=== PATIENT | female | born 1950 | race Caucasian/White ===

== ENCOUNTER → 2019-10-12 15:00 | Outpatient (CLI) | payer MEDICARE, OTHER, SELFPAY ==
--- NOTE | ~2019-10-12 | XR_ITS ---
EXAMINATION: XR knee RT 2V DATE: 10/12/2019 15:23 INDICATION: Right knee pain TECHNIQUE: Two views of the right knee were obtained. COMPARISON: None. FINDINGS: Alignment is normal. No fracture or osteochondral lesion. There is mild tricompartmental os teoarthritis characterized by tiny marginal osteophytes. No joint effusion/synovitis. Soft tissues a re unremarkable. IMPRESSION: 1. No acute osseous abnormality. Reviewed, dictated and finalized at location A.
== END ==
PROVIDERS: PCP Family Medicine Adolescent Medicine; Visit Provider Physician Assistant
DX: M25.561 Pain in right knee (principal)
CPT/HCPCS: 73560

== ENCOUNTER → 2020-05-10 16:59 | Outpatient (CLI) | payer MEDICARE, OTHER, SELFPAY ==
--- NOTE | ~2020-05-10 | MM_ITS ---
EXAMINATION: MM screening nico BI w lukasz HISTORY: Screening TECHNIQUE: Craniocaudal and mediolateral oblique 3-D tomosynthesis images were obtained and synthetic 2-D images were generated. CAD analysis was submitted and interpreted. COMPARISON: Comparison to multiple prior studies sequentially, with oldest reviewed study dated 01/18. BREAST PARENCHYMAL COMPOSITION: The breasts are extremely dense, which lowers the sensitivity of mamm ography. FINDINGS: There is no evidence of suspicious mass, calcification, or architectural distortion to sugg est malignancy in either breast. There has been no suspicious interval change. IMPRESSION: 1. No mammographic evidence of malignancy. 2. Recommend routine screening mammography in one year. BI-RADS Category 1: Negative Reviewed, dictated and finalized at location A.
== END ==
PROVIDERS: PCP Family Medicine Adolescent Medicine; Visit Provider Obstetrics & Gynecology Gynecology
DX: Z12.31 Encounter for screening mammogram for malignant neoplasm of breast (principal)
CPT/HCPCS: 77063; 77067

== ENCOUNTER 2021-03-07 14:33 | Outpatient (CLI) | payer MEDICARE, OTHER, SELFPAY ==
--- NOTE | ~2021-03-07 | CT_ITS ---
EXAMINATION: CT abdomen pelvis wo con DATE: 03/07/2021 15:01 INDICATION: Bilateral flank pain TECHNIQUE: Computed tomography (CT) of the abdomen and pelvis was performed without intravenous contr ast. The dose-length product (DLP) was 176.18 mGy-cm. Automated exposure control and iterative recons truction technique were employed. COMPARISON: 03/11/2019 FINDINGS: The lung bases are clear. The heart size is normal. The liver, spleen, pancreas, gallbladde r, and adrenal glands are normal. The kidneys are unremarkable. No stones are identified in the kidne ys, ureters, or bladder. There is no hydronephrosis or hydroureter. No pathologically enlarged abdomi nal or pelvic lymph nodes are identified. There is no free intraperitoneal gas or evidence of bowel o bstruction. There is moderate lumbar spondylosis. IMPRESSION: 1. No CT correlate for the patient's symptoms. Reviewed, dictated and finalized at location B.
--- NOTE | ~2021-03-07 | XR_ITS ---
EXAMINATION: XR abdomen/kub 1V INDICATION: Bilateral flank pain TECHNIQUE: Supine views of the abdomen were obtained on 2 radiographs. COMPARISON: 03/11/2019 FINDINGS: No urolithiasis is identified. The bowel gas pattern is normal. The visualized lung bases a re clear. There is mild osteoarthritis of the hips. IMPRESSION: 1. No urolithiasis identified. Reviewed, dictated and finalized at location B.
== END 2021-03-07 14:34 | disposition home or self-care (01) ==
PROVIDERS: PCP Family Medicine Adolescent Medicine; Visit Provider Nurse Practitioner Adult Health
DX: R10.9 Unspecified abdominal pain (principal)
CPT/HCPCS: 74018; 74176

== ENCOUNTER 2021-07-31 16:35 | Outpatient (CLI) | payer MEDICARE, OTHER, SELFPAY ==
--- NOTE | ~2021-07-31 | MR_ITS ---
EXAMINATION: MR lumbar spine wo [facility] EXAM DATE: 07/31/2021 17:22 INDICATION: Lumbar neuropathy. TECHNIQUE: Multi-sequential, multiplanar MR images of the lumbar spine were obtained without contrast . Sagittal T1, T2, T2 fat saturation images. Axial T2 weighted images. Comparison is made to prior examination from 07/17/2011. FINDINGS: There is moderate disc disease at L3-4 and L4-5, mild at L2-3 and L5-S1. Mild to moderate l ower thoracic disc disease. The conus medullaris terminates at the L1/2 level and has normal signal i ntensity and morphology. There are no suspicious marrow signal abnormalities. Paraspinal soft tissue is unremarkable. Level by level evaluation: T12-L1: Disc does not extend beyond the endplate margin. Facet arthropathy: Moderate right, mild to moderate left. Neural foraminal stenosis: No stenosis. Central canal stenosis: No stenosis. L1-L2: Disc does not extend beyond the endplate margin. Facet arthropathy: Moderate bilateral. Neural foraminal stenosis: No stenosis. Central canal stenosis: No stenosis. L2-L3: There is a mild diffuse disc bulge. Facet arthropathy: Moderate bilateral. Neural foraminal stenosis: Mild to moderate bilateral. Central canal stenosis: No stenosis. L3-L4: There is a mild diffuse disc bulge. Facet arthropathy: Mild bilateral. Neural foraminal stenosis: Mild bilateral. Central canal stenosis: Mild. L4-L5: There is a mild to moderate diffuse disc bulge. Facet arthropathy: Moderate bilateral. Neural foraminal stenosis: Mild to moderate left, mild right. Central canal stenosis: Mild. L5-S1: There is a mild diffuse disc bulge. Facet arthropathy: Mild. Neural foraminal stenosis: Mild to moderate bilateral. Central canal stenosis: Mild. IMPRESSION: Moderate facet arthropathy and mid lumbar disc disease. Reviewed, dictated and finalized at location A. ER LINE
[2021-07-31 18:00] LABS: Basophils Percent Auto 0.2 % (0.2-1.2); Hematocrit 34.1 % (37.0-47.0); Hemoglobin 11.1 g/dL (12.0-15.0); Immature Granulocyte Absolute 0.08 K/mm3 (0.00-0.031); Immature Granulocyte Percent A 0.9 % (0-0.5); Lymphocytes Absolute Auto 0.88 K/mm3 (0.9-3.2); Lymphocytes Percent Auto 9.9 % (18.3-44.2); Mean Corpuscular HGB Conc 32.6 g/dl (32-36); Mean Corpuscular Hemoglobin 31.8 pg (26-34); Mean Corpuscular Volume 97.7 fl (80-100); Monocytes Absolute Auto 0.3 K/mm3 (0.1-0.6); Monocytes Percent Auto 3.4 % (2.6-8.5); Neutrophils Absolute Auto 7.6 K/mm3 (1.3-6.7); Neutrophils Percent Auto 85.6 % (45.5-73.1); Platelet Count Result 205 k/mm3 (150-375); Red Blood Count 3.49 M/mm3 (4.2-5.4); Red Cell Distribution Width 12.6 % (11.5-14.5); White Blood Count 8.9 K/mm3 (4.5-10.0)
[2021-07-31 18:45] LABS: Thyroid Stimulating Hormone 0.247 uIU/mL (0.465-4.680)
[2021-07-31 18:54] LABS: Alanine Aminotransferase 61 U/L (4-35); Albumin Level 4.2 g/dL (3.5-5.1); Alkaline Phosphatase 99 U/L (38-126); Anion Gap 7 mmol/L (8-16); Aspartate Amino Transferase 42 U/L (14-36); Bilirubin,Total 0.3 mg/dL (0.2-1.3); Blood Urea Nitrogen 16 mg/dL (7-17); Calcium 9.3 mg/dL (8.4-10.2); Carbon Dioxide 28 mmol/L (22-30); Chloride 103 mmol/L (98-107); Estimated Glomerular Filt Rate > 60; Glucose 109 mg/dL (65-110); Potassium 3.9 mmol/L (3.4-5.0); Sodium 138 mmol/L (137-145)
== END 2021-07-31 16:36 | disposition home or self-care (01) ==
PROVIDERS: PCP Family Medicine Adolescent Medicine; Visit Provider Physician Assistant
DX: R53.83 Other fatigue (principal); M47.25 Other spondylosis with radiculopathy, thoracolumbar region; M48.05 Spinal stenosis, thoracolumbar region; M47.27 Other spondylosis with radiculopathy, lumbosacral region; M48.07 Spinal stenosis, lumbosacral region
CPT/HCPCS: 36415; 72148; 80053; 84443; 85025

== ENCOUNTER → 2021-08-30 08:15 | Outpatient (CLI) | payer MEDICARE, OTHER, SELFPAY ==
--- NOTE | ~2021-08-30 | DEXA_ITS ---
Bone Density Report Name: WAGNER QUINTANILLA Age: 70 Sex: Female Ethnicity: White Date of : 1950 Indication: osteopenia; monitoring treatment; parental hip fracture; Referring Provider: VARUN, KARON Study: Bone densitometry was performed. Exam Date: August 30, 2021 Accession number: [id number] Bone Density: Region BMD T-score Z-score Classification AP Spine (L1-L4) 0.971 -0.7 1.5 Normal Femoral Neck (Left) 0.683 -1.5 0.3 Osteopenia Total Hip (Left) 0.817 -1.0 0.5 Normal Femoral Neck (Right) 0.556 -2.6 -0.8 Osteoporosis Total Hip (Right) 0.680 -2.1 -0.6 Osteopenia Total Hip Mean 0.749 -1.6 -0.1 Osteopenia World Health Organization criteria for BMD impression classify patients as: Normal (T-score at or above -1.0), Osteopenia (T-score between -1.0 and -2.5), or Osteoporosis (T-score at or below -2.5). 10-year Fracture Risk: FRAX not reported because: Some T-score for Spine Total or Hip Total or Femoral Neck at or below -2.5 Treated for osteoporosis Previous Exams: Region Exam Age BMD T-score BMD Change BMD Change Date g/cm2 vs Baseline vs Previous AP Spine(L1-L4) 08/30/2021 70 0.971 -0.7 0.074* 0.045* 12/01/2016 66 0.926 -1.1 0.029* 0.029* 01/18/2014 63 0.897 -1.4 Total Hip(Left) 08/30/2021 70 0.817 -1.0 0.008 0.024 12/01/2016 66 0.793 -1.2 -0.016 -0.016 01/18/2014 63 0.809 -1.1 Total Hip(Right) 08/30/2021 70 0.680 -2.1 -0.012 0.000 12/01/2016 66 0.681 -2.1 -0.012 -0.012 01/18/2014 63 0.692 -2.0 *Denotes significance at 95% confidence level, LSC for AP Spine = 0.022 g/cm2, LSC for Total Hip = 0.027 g/cm2 Clinical Information Provided by Patient: Parent has had a hip fracture Is being treated for osteoporosis Has used the following medications: Prolia (i.e. denosumab), Calcium Patient maximum height was 62 Menopause Age: 45 No regular weight bearing exercise Onset of menses at age 12 Number of children 3 Impression: The patient has osteoporosis, based on the Right Femoral Neck T-score. The patient has risk factors, including: parental hip fracture. No significant bone loss was observed. Discussion: PATIENT UNDER TREATMENT WITH NO SIGNIFICANT BMD LOSS SINCE LAST EXAM. In an untreated patient, BMD typically declines with age. A lack of decline or gain is usually a sign that treatm
--- NOTE | ~2021-08-30 | MMUS_ITS ---
EXAMINATION: MM diagnostic nico BI w lukasz, US breast BI limited HISTORY: Bilateral breast pain TECHNIQUE: Craniocaudal, mediolateral, and mediolateral oblique 3-D tomosynthesis images of the breandrzej ts were performed and synthetic 2-D images were generated. CAD analysis was submitted and interpreted . High resolution limited bilateral breast ultrasound was performed. COMPARISON: 05/10/2020, 02/21/2019, 12/03/2017, 12/01/2016 BREAST PARENCHYMAL COMPOSITION: There are scattered areas of fibroglandular density. FINDINGS: MAMMOGRAPHIC FINDINGS: A 5 mm obscured, oval, low density mass in the upper outer quadrant of the left breast is stable on m ultiple prior mammograms, consistent with a benign finding. There is no suspicious mass, calcificatio n, or architectural distortion in either breast. No mammographic correlate is identified for the billie ent's bilateral breast pain. ULTRASOUND: There is a 6 mm x 4 mm oval, circumscribed, parallel, hypoechoic mass with no posterior features or i nternal vascularity at the 1:00 location 4 cm from the nipple in the left breast corresponding to the mammographic finding in question. No suspicious mass is identified in either breast. IMPRESSION: 1. No specific mammographic or sonographic correlate is identified for the patient's reported bilater al breast pain. Further evaluation at this time should be based on clinical assessment. Continued fol low-up physical examination is recommended. 2. Recommend routine screening mammography in one year. BI-RADS Category 2: Benign finding(s). Reviewed, dictated and finalized at location A. [employer] EVENT PLANNER IMPRESSION: 1. No specific mammographic or sonographic correlate is identified for the billie ent's reported bilateral breast pain. Further evaluation at this time should be based on clinical assessment. Continued follow-up physical examination is frida mmended. 2. Recommend routine screening mammography in one year. BI-RADS Category 2: Benign finding(s).
== END ==
PROVIDERS: PCP Family Medicine Adolescent Medicine; Visit Provider Nurse Practitioner
DX: N64.4 Mastodynia (principal); Z78.0 Asymptomatic menopausal state; M85.89 Other specified disorders of bone density and structure, multiple sites; M81.0 Age-related osteoporosis without current pathological fracture
CPT/HCPCS: 76642; 77062; 77066; 77080; G0279

== ENCOUNTER 2021-10-06 11:20 | Outpatient (CLI) | payer MEDICARE, OTHER, SELFPAY ==
--- NOTE | ~2021-10-06 | US_ITS ---
EXAMINATION: US venous doppler UE RT DATE: 10/06/2021 11:55 INDICATION: Right forearm pain. TECHNIQUE: Grayscale ultrasound images without and with compression and Doppler ultrasound images of the right upper extremity veins were obtained. COMPARISON: None. FINDINGS: The visualized portions of the right internal jugular vein, subclavian vein, axillary vein, brachial veins, basilic vein, cephalic vein, radial vein, and ulnar vein are patent. IMPRESSION: 1. No deep venous thrombosis. Reviewed, dictated and finalized at location A. LING AGENCY MANAGER
== END 2021-10-06 11:21 | disposition home or self-care (01) ==
LOC: ANHIMG 11:27
PROVIDERS: PCP Family Medicine Adolescent Medicine; Visit Provider Physician Assistant
DX: M79.631 Pain in right forearm (principal); M79.89 Other specified soft tissue disorders
CPT/HCPCS: 93971

== ENCOUNTER 2022-01-30 17:20 | Emergency (ER) | payer MEDICARE, OTHER, SELFPAY ==
[2022-01-30] VITALS (11 sets, daily range): BP systolic 115–125; BP diastolic 56–69; PULSE 66–81; RESP 16–18; TEMP 36.6; O2SAT 90–100
--- NOTE | ~2022-01-30 | CT_ITS ---
EXAMINATION: CT abdomen pelvis w con DATE: 01/30/2022 19:40 INDICATION: RLQ pain, diarrhea X 3 days TECHNIQUE: Computed tomography (CT) of the abdomen and pelvis was performed with 100 mL Omnipaque-300 intravenous contrast. Automated exposure control and iterative reconstruction technique were employe d. The dose-length product was 295.23 mGy-cm. COMPARISON: 03/07/2021. FINDINGS: Lower thorax: Stable left lingular nodule, requires no additional follow-up. Lung bases otherwise ney ar. Cardiomegaly. Liver: Normal. Biliary/Gallbladder: Gallbladder is normal. No bile duct dilation. Pancreas: No mass or duct dilation. Spleen: Normal. Adrenals:No mass. Kidneys: No mass, stone, or hydronephrosis. Ill-defined patchy areas of hypoenhancement in the right kidney. GI tract: No small or large bowel dilation. Appendix not visualized. Mesentery/Peritoneum: No ascites, mass, or free air. Retroperitoneum: No mass. Pelvis: Pelvic organs are within normal limits. Soft Tissues: Soft tissues and body wall unremarkable. Bones: No acute osseous finding. IMPRESSION: Patchy enhancement in the right kidney, may reflect pyelonephritis in the appropriate clinical contex t. Appendix not visualized. Reviewed, dictated and finalized at location K. IMPRESSION: Patchy enhancement in the right kidney, may reflect pyelonephritis in the appro priate clinical context. Appendix not visualized.
--- NOTE | 2022-01-30 17:35 | ED.GENADULT ---
HPI - General Adult General Chief complaint: Nausea/Vomiting/Diarrhea Stated complaint: diarrhea Time Seen by Provider: 01/30/22 17:35 Source: patient Mode of arrival: ambulatory Limitations: no limitations History of Present Illness HPI narrative: Patient is a 71-year-old female who presents ED with report of diarrhea x 3 days. Patient reports she had squash soup on Saturday. She states she hardly digested it and was having profuse diarrhea after eating it, with chunks of squash in it. She has had persistent diarrhea since then, with several episodes per day. She denies any rectal bleeding. She does have some lower abdominal cramping associated with the diarrhea. Denies any nausea, vomiting, fever, chills, dysuria, hematuria, urinary frequency. Patient has not tried anything for her symptoms, but notes she does have Imodium at home. She does have a history of IBS. Related Data Home Medications Medication Instructions Recorded Confirmed clobetasol 0.05 % topical cream 1 applic topical DAILY 08/18/19 10/06/21 cyclosporine 0.05 % eye drops 1 drop ophthalmic (eye) Q12H 08/18/19 10/06/21 (Restasis MultiDose) flaxseed oil 1,000 mg capsule 1,000 mg PO DAILY 08/18/19 10/06/21 ginkgo biloba 120 mg tablet 120 mg PO DAILY 08/18/19 10/06/21 pantoprazole 40 mg tablet,delayed 40 mg PO QAM 08/18/19 10/06/21 release triamcinolone acetonide 0.5 % 1 applic topical DAILY 08/18/19 10/06/21 topical cream vitamin B complex (B 1 tablet PO DAILY 08/18/19 10/06/21 Complex-Vitamin B12 tablet) baclofen 10 mg tablet 5 mg PO BID 10/06/21 10/06/21 calcium carbonate 600 mg calcium 600 mg PO BID 10/06/21 10/06/21 (1,500 mg) tablet ergocalciferol (vitamin D2) 1,250 1,250 mcg PO WEEKLY 10/06/21 10/06/21 mcg (50,000 unit) capsule (Vitamin D2) gabapentin 300 mg capsule 300 mg PO BID 10/06/21 10/06/21 mirabegron 50 mg tablet,extended 50 mg PO DAILY 10/06/21 10/06/21 release 24 hr (Myrbetriq) Allergies Allergy/AdvReac Type Severity Reaction Status Date / Time codeine Allergy Unknown u Verified 10/06/21 10:11 diazepam Allergy Unknown u Verified 10/06/21 10:11 nitrofurantoin Allergy Unknown u Verified 10/06/21 10:11 polymyxin B Allergy Unknown u Verified 10/06/21 10:11 propoxyphene Allergy Unknown u Verified 10/06/21 10:11 Sulfa (Sulfonamide Allergy Unknown u Verified 10/06/21 10:11 Antibiotics) trimethoprim Allergy Unknown u Verified 10/06/21 10:11 NITROFURANTOIN MACROCRYSTAL Allergy Unknown u Uncoded 10/06/21 10:11 Review of Systems Review of Systems: CONSTITUTIONAL: Denies fever, chills. CARDIOVASCULAR: Denies chest pain. RESPIRATORY: Denies dyspnea. GASTROINTESTINAL: Reports lower abdominal cramping, diarrhea. Denies rectal bleeding, nausea, vomiting. GENITOURINARY: Denies dysuria, urinary frequency, or hematuria. MUSCULOSKELETAL: Denies back pain, joint pain. NEUROLOGIC: Denies headache, numbness, or weakness. All systems reviewed & are unremarkable except as noted in HPI and below PMFSH Past Medical History Medical History Anxiety Depression GERD (gastroesophageal reflux disease) History of colon polyps Irritable bowel syndrome Mixed hearing loss, bilateral Osteopenia Osteoporosis Overactive bladder Surgical History Surgical History History of History of D&C History of ear surgery right x4 History of tonsillectomy and adenoidectomy Family History Family History Father Family history of Parkinson's disease Family history of dementia Family history of malignant neoplasm Mother Family history of malignant neoplasm of breast in first degree relative Family history of osteoporosis Family history of coronary artery disease Social History Social History Smoking status: Never sm
[2022-01-30 18:05] LABS: Appearance Urine Clear (Clear); Bilirubin Urine Negative (Negative); Blood Urine Negative (Negative); Color Urine Yellow (Yellow); Glucose Urine UA Negative (Negative); Ketones Urine Negative (Negative); Leukocyte Esterase Ur Trace LEU/UL (Negative); Nitrate Urine Negative (Negative); Protein Urine Negative (Negative); Urobilinogen Urine 0.2 mg/dL (<2.0); pH Urine 5.5 (5.0-9.0)
[2022-01-30 18:12] LABS: Mucus Urine Rare /lpf; RBC Urine 0-2 /hpf (0-2); Squamous Epithelial Cell Urine Rare /hpf (Few); Transitional Epi Cells Urine Rare /hpf (None Seen); WBC Urine 0-3 /hpf
[2022-01-30 18:15] LABS: Add Urine Microscopic? YES
[2022-01-30 18:17] LABS: Basophils Percent Auto 0.4 % (0.2-1.2); Eosinophils Percent Auto 0.2 % (0-4.4); Hematocrit 35.5 % (37.0-47.0); Hemoglobin 11.3 g/dL (12.0-15.0); Immature Granulocyte Absolute 0.02 K/mm3 (0.00-0.031); Immature Granulocyte Percent A 0.4 % (0-0.5); Lymphocytes Percent Auto 26.7 % (18.3-44.2); Mean Corpuscular HGB Conc 31.8 g/dl (32-36); Mean Corpuscular Hemoglobin 30.9 pg (26-34); Mean Platelet Volume 9.1 fl (7.4-10.4); Monocytes Absolute Auto 0.4 K/mm3 (0.1-0.6); Monocytes Percent Auto 8.2 % (2.6-8.5); Neutrophils Absolute Auto 3.1 K/mm3 (1.3-6.7); Neutrophils Percent Auto 64.1 % (45.5-73.1); Platelet Count Result 155 k/mm3 (150-375); Red Blood Count 3.66 M/mm3 (4.2-5.4); Red Cell Distribution Width 12.7 % (11.5-14.5); White Blood Count 4.9 K/mm3 (4.5-10.0)
[2022-01-30 18:27] LABS: Alanine Aminotransferase 23 U/L (6-35); Albumin Level 4.4 g/dL (3.5-5.1); Alkaline Phosphatase 88 U/L (38-126); Anion Gap 4 mmol/L (8-16); Aspartate Amino Transferase 29 U/L (14-36); Bilirubin,Total 0.3 mg/dL (0.2-1.3); Blood Urea Nitrogen 18 mg/dL (7-17); Calcium 9.3 mg/dL (8.4-10.2); Carbon Dioxide 30 mmol/L (22-30); Chloride 101 mmol/L (98-107); Estimated CRCL calculation 44 ml/min; Estimated Glomerular Filt Rate > 60; Glucose 92 mg/dL (65-110); Lipase 56 U/L (23-300); Potassium 3.8 mmol/L (3.4-5.0); Sodium 135 mmol/L (137-145)
[2022-01-30] MEDS: SODIUM CHLORIDE 0.9% IV 1,000 ML 999 ML IV CONT (19:15)
== END 2022-01-30 22:12 | disposition home or self-care (01) ==
PROVIDERS: Physician Assistant; Emergency Provider Emergency Medicine; PCP Family Medicine Adolescent Medicine
DX: R19.7 Diarrhea, unspecified (principal); F41.9 Anxiety disorder, unspecified; F32.9 Major depressive disorder, single episode, unspecified; K21.9 Gastro-esophageal reflux disease without esophagitis; M85.80 Other specified disorders of bone density and structure, unspecified site
CPT/HCPCS: 36415; 74177; 80053; 81001; 83690; 85025; 96360; 99284; J7030; Q9967

== ENCOUNTER 2022-06-12 07:27 | Outpatient (CLI) | payer MEDICARE, OTHER, SELFPAY ==
--- NOTE | 2022-07-09 18:06 | WPDSLEEPSTUD ---
Sleep Study Date of Study: 06/12/22 Ordering Provider: ISAAC Vallejo Interpreting Physician: Tiera David DO Sleep Study Type: Polysomnogram Height: 1.57 m Weight: 54.885 kg Body Mass Index: 22.1 Neck Circumference (inches): 15 [place]: 11 Reason for Sleep Study Daytime hypersomnia Sleep History The patient is a 71 year old female with depression, GERD, osteoporosis, asthma, overactive bladder, seasonal allergies and eczema that had a sleep study ordered by the Pulmonary group for evaluation of sleep disturbances. 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 She denies awakening from sleep short of breath. She occasionally awakens at night with heartburn, belching or cough. She rarely snores and is never loud enough that others complain. She rarely has trouble sleeping when she has a cold. She denies waking up gasping for air throughout the night. She denies having breathing problems at night observed by herself or others. She denies sweating excessively at night. She denies having heart palpitations or irregular heartbeats during the night. She occasionally falls asleep during the day but never while driving. She denies sleep paralysis, cataplexy and hypnagogic / hypnopompic hallucinations. She rarely has trouble at school or work due to sleepiness. She denies feeling afraid of going to sleep. She rarely has nightmares and occasionally remembers her dreams. She denies having thoughts racing through her mind. She rarely feels sad, depressed or anxious. She rarely has muscular tension. She denies noticing parts of her body jerk. She denies kicking during the night. She occasionally has crawling and aching feelings in her legs and occasionally has leg pain during the night. She denies grinding her teeth during sleep denies awakening with morning jaw pain. She is occasionally bothered by pain during the day but rarely awakened by pain during the night. She rarely wakes up feeling stiff in the morning. She rarely wakes up with sore achy muscles. She occasionally wakes up with pain in the, spine or other joints. She goes to bed at 10:30 p.m. on weekdays and 11:00 p.m. on the weekends. She is unsure how long it takes her to fall asleep. She wakes up 4 times throughout the night to urinate. She is able to fall asleep immediately. She wakes up at 6:00 a.m. on weekdays and at 6:30 a.m. on the weekends. She typically gets 6-7 hours of sleep per night. She does not stay in bed long after waking up in the morning. She currently lives with her 2 grand kids. She does not consume any caffeinated beverages within 2 hours of bedtime. She does not engage in physical exercise before bedtime. She does not read or watch television before falling asleep. She does not take naps in the afternoon or the evening. She does not consume any caffeinated beverages throughout the day. She will consume 1 alcoholic beverage per month. She denies tobacco and recreational drug use. [facility] Past Medical History Medical History Anxiety Depression GERD (gastroesophageal reflux disease) History of colon polyps Irritable bowel syndrome Mixed hearing loss, bilateral Osteopenia Osteoporosis Overactive bladder Surgical History Surgical History History of History of D&C History of ear surgery right x4 History of tonsillectomy and adenoidectomy Family History Family History Father Family history of Parkinson's disease Family history of dementia Family history of malignant neoplasm Mother Family history of malignant neoplasm of breast in first degree relative Family history of osteoporosis Family history of coronary artery disease Social History Social History Smoking status: Never smoker S
[2022-07-09 18:12] VITALS: BMI 22.1
== END 2022-06-13 07:22 | disposition home or self-care (01) ==
PROVIDERS: PCP Family Medicine Adolescent Medicine; Visit Provider Physician Assistant
DX: G47.33 Obstructive sleep apnea (adult) (pediatric) (principal); G47.10 Hypersomnia, unspecified
CPT/HCPCS: 95810

== ENCOUNTER → 2022-06-25 16:40 | Outpatient (CLI) | payer MEDICARE, OTHER, SELFPAY ==
--- NOTE | ~2022-06-25 | XR_ITS ---
XR foot RT min 3V 06/25/2022 17:41 Indication: Right foot pain Procedure: 4 views right foot Comparison: Right ankle series dated 12/18/2016 Findings: There is ankylosis of the hindfoot and midfoot. There is deformity of the talus with loss o f height. The tibiotalar joint appears similar to prior examination. There are degenerative calcaneal enthesophyte. There is mild osteoarthritis of the first MTP joint there is heterotopic ossification of the Achilles tendon. Generalized osteopenia. No acute fracture is identified. There is subluxation at the fifth interphalangeal joint. Impression: 1: Ankylosis of the hindfoot and midfoot. 2: Severe tibiotalar joint osteoarthritis and pseudoarthrosis between the anterior aspect of the dist al tibia and foot fusion mass. 3: No acute fracture. Reviewed, dictated and finalized at location A. E I ASSISTANT Impression: 1: Ankylosis of the hindfoot and midfoot. 2: Severe tibiotalar joint osteoarthritis and pseudoarthrosis between the anter ior aspect of the distal tibia and foot fusion mass. 3: No acute fracture.
== END ==
PROVIDERS: PCP Family Medicine Adolescent Medicine; Visit Provider Physician Assistant
DX: M79.671 Pain in right foot (principal); M24.674 Ankylosis, right foot; M19.071 Primary osteoarthritis, right ankle and foot
CPT/HCPCS: 73630

== ENCOUNTER 2022-10-12 13:35 | Outpatient (CLI) | payer MEDICARE, OTHER, SELFPAY ==
--- NOTE | 2022-10-12 16:48 | WPDSIXMINUTE ---
Six Minute Walk Procedure Procedure Performed Pulmonary Stress Test (6 min walk) Six Minute Walk Six Minute Walk: This is a 6 minute walk test. The test was performed and interpreted in accordance with the 2014 ERS/ATS task force guidelines. Findings: The patient's resting room air oxygen saturation measured by pulse oximetry was 99% and heart rate was 68 bpm. Patient ambulated for 290 meters and oxygen saturation remained 95 to 97%. Heart rate at the end of the study was 81 bpm. The patient did not qualify for supplemental oxygen at rest or with ambulation. There are no prior studies for comparison.
--- NOTE | 2022-10-12 16:49 | WPDPFTINT ---
PFT Procedure Performed PFT Procedure Performed Spirometry with Pre/Post Bronchodilator Plethysmography (Lung Vol) Diffusing Cap (DLCO) Flow Vol Loop PFT Interpretation This is a pulmonary function test with pre and post-bronchodilator spirometry, plethysmography and diffusing capacity. The test was performed and results interpreted in accordance with the 2019 and 2005 ATS/ERS Task Force guidelines respectively using the Global Lung Function Initiative-2012 reference equations. Patient demonstrated good effort and cooperation. Reproducibility criteria were met. The quality of the pre bronchodilator spirometry maneuver was Grade A and post bronchodilator spirometry maneuver was Grade B. Findings: Spirometry: The contour the inspiratory and expiratory flow tracing are normal. The pre bronchodilator FVC is 2.48 L, 95% predicted. The pre bronchodilator FEV1 is 1.77 L, 87% predicted. The pre bronchodilator FEV1: FVC ratio 71%. The post bronchodilator FVC is 2.53 L, representing a 2% increase. The post bronchodilator FEV1 is 1.75 L, representing 1% decrease. The post bronchodilator FEV1: FVC ratio 69%. Plethysmography: The total lung capacity is 4.83 L, 102% predicted. The functional residual capacity is 3.44 L, 128% predicted. The residual volume is 2.21 L, 105% predicted. Diffusing capacity: The diffusing capacity unadjusted for hemoglobin and carboxyhemoglobin is 13.9, 71% predicted. The diffusing capacity adjusted for alveolar volume is 4.78, 110% predicted. Impression: The spirometry is normal without evidence of an obstructive abnormality. There is no significant improvement after inhaling a single dose of albuterol. The lung volumes are normal. The diffusing capacity is normal. There are no prior studies for comparison
== END 2022-10-12 13:36 | disposition home or self-care (01) ==
LOC: ANHPFT 13:36
PROVIDERS: PCP Family Medicine Adolescent Medicine; Visit Provider Internal Medicine Critical Care Medicine
DX: J45.20 Mild intermittent asthma, uncomplicated (principal)
CPT/HCPCS: 94060; 94618; 94726; 94729

== ENCOUNTER 2022-11-23 16:09 | Outpatient (CLI) | payer MEDICARE, OTHER, SELFPAY ==
[2022-11-23 16:41] LABS: CRP 0.6 mg/dL (<1.0)
[2022-11-23 16:59] LABS: Erythrocyte Sedimentation Rate 37 mm/hr (0-20)
[2022-11-28 10:19] LABS: ANA Cascade Screen Negative (Negative)
== END 2022-11-23 16:10 | disposition home or self-care (01) ==
PROVIDERS: PCP Family Medicine Adolescent Medicine; Visit Provider Internal Medicine Critical Care Medicine
DX: I73.00 Raynaud's syndrome without gangrene (principal)
CPT/HCPCS: 36415; 85652; 86038; 86140

== ENCOUNTER → 2023-04-17 13:49 | Outpatient (CLI) | payer MEDICARE, OTHER, SELFPAY ==
--- NOTE | ~2023-04-17 | MM_ITS ---
EXAMINATION: MM screening nico BI w lukasz HISTORY: Screening TECHNIQUE: Craniocaudal and mediolateral oblique 3-D tomosynthesis images were obtained and synthetic 2-D images were generated. CAD analysis was submitted and interpreted. COMPARISON: Comparison to multiple prior studies sequentially, with oldest reviewed study dated 10/13. BREAST PARENCHYMAL COMPOSITION: The breasts are heterogeneously dense, which may obscure small masses . FINDINGS: There is no evidence of suspicious mass, calcification, or architectural distortion to sugg est malignancy in either breast. There has been no suspicious interval change. IMPRESSION: 1. No mammographic evidence of malignancy. 2. Recommend routine screening mammography in one year. BI-RADS Category 1: Negative Reviewed, dictated and finalized at location A.
== END ==
PROVIDERS: PCP Family Medicine Adolescent Medicine; Visit Provider Obstetrics & Gynecology Gynecology
DX: Z12.31 Encounter for screening mammogram for malignant neoplasm of breast (principal)
CPT/HCPCS: 77063; 77067

== ENCOUNTER 2023-08-21 13:21 | Outpatient (RCR) | payer MEDICARE, SELFPAY ==
[2023-08-21 13:31] VITALS: BMI 21.4
[2023-08-21 13:45] VITALS: BMI 21.4
== END 2023-11-19 23:59 | disposition home or self-care (01) ==
LOC: ANHDMC 13:21
PROVIDERS: PCP Family Medicine Adolescent Medicine; Visit Provider Family Medicine Adolescent Medicine
DX: K58.9 Irritable bowel syndrome, unspecified (principal); Z71.3 Dietary counseling and surveillance
CPT/HCPCS: 97802

== ENCOUNTER 2023-10-29 12:26 | Outpatient (CLI) | payer MEDICARE, OTHER, SELFPAY ==
--- NOTE | ~2023-10-29 | DEXA_ITS ---
Bone Density Report Name: WAGNER QUINTANILLA Age: 72 Sex: Female Ethnicity: White Date of : 1950 Indication: osteopenia; monitoring treatment; parental hip fracture; asthma or emphysema; postmenopausal Referring Provider: VARUN, KARON Study: Bone densitometry was performed. Exam Date: October 29, 2023 Accession number: [id number] Bone Density: Region BMD T-score Z-score Classification AP Spine (L1, L2, L3) 0.917 -0.9 1.3 Normal Femoral Neck (Left) 0.658 -1.7 0.2 Osteopenia Total Hip (Left) 0.824 -1.0 0.7 Normal Femoral Neck (Right) 0.590 -2.3 -0.4 Osteopenia Total Hip (Right) 0.683 -2.1 -0.5 Osteopenia Total Hip Mean 0.754 -1.6 0.1 Osteopenia World Health Organization criteria for BMD impression classify patients as: Normal (T-score at or above -1.0), Osteopenia (T-score between -1.0 and -2.5), or Osteoporosis (T-score at or below -2.5). 10-year Fracture Risk: FRAX not reported because: Treated for osteoporosis Previous Exams: Region Exam Age BMD T-score BMD Change BMD Change Date g/cm2 vs Baseline vs Previous AP Spine(L1, L2, L3) 10/29/2023 72 0.917 -0.9 0.046* -0.003 08/30/2021 70 0.921 -0.9 0.049* 0.029* 12/01/2016 66 0.892 -1.1 0.020 0.020 01/18/2014 63 0.871 -1.3 Total Hip(Left) 10/29/2023 72 0.824 -1.0 0.015 0.007 08/30/2021 70 0.817 -1.0 0.008 0.024 12/01/2016 66 0.793 -1.2 -0.016 -0.016 01/18/2014 63 0.809 -1.1 Total Hip(Right) 10/29/2023 72 0.683 -2.1 -0.009 0.003 08/30/2021 70 0.680 -2.1 -0.012 0.000 12/01/2016 66 0.681 -2.1 -0.012 -0.012 01/18/2014 63 0.692 -2.0 *Denotes significance at 95% confidence level, LSC for AP Spine = 0.022 g/cm2, LSC for Total Hip = 0.027 g/cm2 Clinical Information Provided by Patient: Parent has had a hip fracture Is being treated for osteoporosis Has used the following medications: Prolia (i.e. denosumab), Calcium Has the following medical conditions: Asthma or Emphysema Patient maximum height was 62 Menopause Age: 45 Onset of menses at age 12 Number of children 3 Impression: The patient has low bone mass, based on the Right Femoral Neck T-score. The patient has risk factors, including: parental hip fracture. No significant bone loss was observed. Discussion: PATIENT UN
== END 2023-10-29 12:27 ==
PROVIDERS: PCP Family Medicine Adolescent Medicine; Visit Provider Obstetrics & Gynecology Gynecology
DX: M85.89 Other specified disorders of bone density and structure, multiple sites (principal); M81.0 Age-related osteoporosis without current pathological fracture; Z78.0 Asymptomatic menopausal state; Z13.820 Encounter for screening for osteoporosis
CPT/HCPCS: 77080

== ENCOUNTER 2024-02-07 18:33 | Emergency (ER) | payer MEDICARE, OTHER, SELFPAY ==
--- NOTE | ~2024-02-07 | XR_ITS ---
EXAMINATION: XR chest 2V DATE: 02/07/2024 19:05 INDICATION: Palpitations. TECHNIQUE: Frontal and lateral views of the chest were obtained. COMPARISON: Chest 2 views 04/06/2009 FINDINGS: There is no pneumonia, pleural effusion, or pneumothorax. The heart size is normal. There a re changes of anterior fusion procedure in cervical spine. IMPRESSION: 1. No acute cardiopulmonary disease. Reviewed, dictated and finalized at location E.
--- NOTE | 2024-02-07 18:34 | ECG_ITS ---
Test Date: 2024-02-07 18:41:38 Measurements Intervals [place] Rate: 99 P: 66 WI: 137 QRS: -46 QRSD: 108 T: 75 QT: 341 QTc: 439 Interpretive Statements SINUS RHYTHM WITH SINUS ARRHYTHMIA INCOMPLETE RIGHT BUNDLE BRANCH BLOCK LEFT ANTERIOR FASCICULAR BLOCK LEFT VENTRICULAR HYPERTROPHY AND ST-T CHANGE CANNOT R/O SEPTAL INFARCT, AGE INDETERMINATE ABNORMAL ECG No previous ECG available for comparison Electronically Signed On 02-07-2024 19:30:54 CDT by Chas De Leon D.O.
[2024-02-07 18:43] VITALS: BP 131/75; PULSE 98; RESP 16; TEMP 36.8; O2SAT 100
[2024-02-07 19:01] LABS: Basophils Percent Auto 0.4 % (0.2-1.2); Eosinophils Percent Auto 0.2 % (0-4.4); Hematocrit 39.8 % (37.0-47.0); Hemoglobin 12.8 g/dL (12.0-15.0); Immature Granulocyte Absolute 0.03 K/mm3 (0.00-0.031); Immature Granulocyte Percent A 0.5 % (0-0.5); Lymphocytes Absolute Auto 1.86 K/mm3 (0.9-3.2); Lymphocytes Percent Auto 32.9 % (18.3-44.2); Mean Corpuscular HGB Conc 32.2 g/dl (32-36); Mean Corpuscular Volume 96.4 fl (80-100); Mean Platelet Volume 9.2 fl (7.4-10.4); Monocytes Absolute Auto 0.2 K/mm3 (0.1-0.6); Monocytes Percent Auto 4.1 % (2.6-8.5); Neutrophils Absolute Auto 3.5 K/mm3 (1.3-6.7); Neutrophils Percent Auto 61.9 % (45.5-73.1); Platelet Count Result 189 k/mm3 (150-375); Red Blood Count 4.13 M/mm3 (4.2-5.4); Red Cell Distribution Width 12.9 % (11.5-14.5); White Blood Count 5.7 K/mm3 (4.5-10.0)
[2024-02-07 19:15] LABS: Alanine Aminotransferase 28 U/L (6-35); Albumin Level 4.9 g/dL (3.5-5.1); Alkaline Phosphatase 93 U/L (38-126); Anion Gap 13 mmol/L (4-12); Aspartate Amino Transferase 38 U/L (14-36); Bilirubin,Total 0.8 mg/dL (0.2-1.3); Blood Urea Nitrogen 12 mg/dL (7-17); Calcium 9.2 mg/dL (8.4-10.2); Carbon Dioxide 25 mmol/L (22-30); Chloride 100 mmol/L (98-107); Estimated CRCL calculation 49 ml/min; Estimated Glomerular Filt Rate > 60; Glucose 109 mg/dL (65-110); Potassium 3.6 mmol/L (3.4-5.0); Sodium 138 mmol/L (137-145)
--- NOTE | 2024-02-07 23:42 | ED.ARRPALP ---
HPI - Arrhythmia/Palpitations General Chief Complaint: Arrhythmia/Palpitations Stated Complaint: palpatations Time Seen by Provider: 02/07/24 23:07 Source: patient Mode of arrival: ambulatory Limitations: no limitations History of Present Illness HPI narrative: This is a 73 year old female that presents to the ER for heart racing. Reports she is recovering from COVID. Reports she is finishing her last day of Paxlovid. Today was the first day she got out and ran some errands. Reports when she got home she started to feel like her heart was racing. She felt like she might pass out. Reports some shortness of breath. Denies chest pain. Related Data Home Medications Medication Instructions Recorded Confirmed clobetasol 0.05 % topical cream 1 applic topical DAILY 08/18/19 11/08/23 cyclosporine 0.05 % eye drops 1 drop ophthalmic (eye) Q12H 08/18/19 11/08/23 (Restasis MultiDose) flaxseed oil 1,000 mg capsule 1,000 mg PO DAILY 08/18/19 11/08/23 ginkgo biloba 120 mg tablet 120 mg PO DAILY 08/18/19 11/08/23 triamcinolone acetonide 0.5 % 1 applic topical DAILY 08/18/19 11/08/23 topical cream baclofen 10 mg tablet 5 mg PO BID 10/06/21 11/08/23 calcium carbonate 600 mg PO BID 10/06/21 11/08/23 ergocalciferol (vitamin D2) 1,250 1,250 mcg PO WEEKLY 10/06/21 11/08/23 mcg (50,000 unit) capsule (Vitamin D2) gabapentin 300 mg capsule 300 mg PO BID 10/06/21 11/08/23 mirabegron 50 mg tablet,extended 50 mg PO DAILY 10/06/21 11/08/23 release 24 hr (Myrbetriq) clotrimazole 10 mg fitz 10 mg PO TID 06/05/23 11/08/23 omeprazole 40 mg capsule,delayed 40 mg PO DAILY 06/05/23 11/08/23 release Allergies Allergy/AdvReac Type Severity Reaction Status Date / Time codeine Allergy Unknown Unknown Verified 11/08/23 12:43 diazepam Allergy Unknown Unknown Verified 11/08/23 12:43 nitrofurantoin Allergy Unknown Unknown Verified 11/08/23 12:43 polymyxin B Allergy Unknown Unknown Verified 11/08/23 12:43 propoxyphene Allergy Unknown Unknown Verified 11/08/23 12:43 Sulfa (Sulfonamide Allergy Unknown Unknown Verified 11/08/23 12:43 Antibiotics) trimethoprim Allergy Unknown Unknown Verified 11/08/23 12:43 NITROFURANTOIN MACROCRYSTAL Allergy Unknown Unknown Uncoded 11/08/23 12:43 Review of Systems Review of Systems: CONSTITUTIONAL: Reports fever ENT: Reports congestion, sore throat CARDIOVASCULAR: Denies chest pain, or edema. RESPIRATORY: Reports cough and dyspnea. GASTROINTESTINAL: Reports diarrhea. All systems reviewed & are unremarkable except as noted in HPI and below PMFSH Past Medical History Medical History Anxiety Depression GERD (gastroesophageal reflux disease) History of colon polyps Irritable bowel syndrome Mixed hearing loss, bilateral Osteopenia Osteoporosis Overactive bladder Surgical History Surgical History History of History of D&C History of ear surgery right x4 History of tonsillectomy and adenoidectomy Family History Family History Father Family history of Parkinson's disease Family history of dementia Family history of malignant neoplasm Mother Family history of malignant neoplasm of breast in first degree relative Family history of osteoporosis Family history of coronary artery disease Social History Social History Smoking status: Never smoker Second hand tobacco smoke exposure: Yes Alcohol intake: current Drinks per week: 1 Substance use: never Substance use type: does not use Lack of Transportation: No Lack of Food: Never True Current Housing: I Have Housing Concerned About Future Housing: No Difficulty Paying Gas/Electric Bills: No Difficulty Paying for Meds: No Currently Unemployed: No Education: High School Diploma/GED Di
[2024-02-07 23:46] LABS: Appearance Urine Clear (Clear); Bacteria Urine None Seen /hpf; Bilirubin Urine Negative (Negative); Blood Urine Trace (Negative); Color Urine Yellow (Yellow); Glucose Urine UA Negative (Negative); Ketones Urine Negative (Negative); Leukocyte Esterase Ur 1+ LEU/UL (Negative); Nitrate Urine Negative (Negative); Non Pathogenic Casts 0-2; Protein Urine Negative (Negative); RBC Urine 0-2 /hpf (0-2); Specific Grav Ur 1.008 (1.001-1.035); Squamous Epithelial Cell Urine None Seen /hpf (Few); Urobilinogen Urine 0.2 mg/dL (<2.0); pH Urine 6.5 (5.0-9.0)
--- NOTE | 2024-02-07 23:54 | PC.NURSE ---
pt amina tidwell [phone] updated at this time via phone conversation.
[2024-02-07 23:56] LABS: Add Urine Microscopic? YES
[2024-02-07 23:57] LABS: D Dimer < 0.27 ug/mL (<0.48)
[2024-02-08 00:44] VITALS: BP 152/83; PULSE 67; RESP 14; O2SAT 100
== END 2024-02-08 01:01 | disposition home or self-care (01) ==
PROVIDERS: Emergency Medicine; Emergency Provider Physician Assistant; PCP Family Medicine Adolescent Medicine
DX: R00.2 Palpitations (principal); R82.81 Pyuria; K21.9 Gastro-esophageal reflux disease without esophagitis; M81.0 Age-related osteoporosis without current pathological fracture; F41.8 Other specified anxiety disorders
CPT/HCPCS: 36415; 71046; 80053; 81001; 85025; 85380; 87086; 93005; 99284

== ENCOUNTER 2024-02-21 16:26 | Outpatient (CLI) | payer MEDICARE, OTHER, SELFPAY ==
--- NOTE | ~2024-02-21 | XR_ITS ---
XR femur LT min 2V Ordering provider: Alverto Bird MD History: . M79.652 - Pain in left thigh . Comparison: February 21, 2024 FINDINGS: BONES: No acute fracture or dislocation. JOINT SPACES: Osteoarthritic changes of the left hip. SOFT TISSUES: Normal. IMPRESSION: No acute osseous abnormality left femur. Reviewed, dictated and finalized at location A.
--- NOTE | ~2024-02-21 | XR_ITS ---
XR hip LT min 2V Ordering provider: Alverto Bird MD History: . M79.652 - Pain in left thigh . Comparison: February 21, 2024 FINDINGS: BONES: No acute fracture or dislocation. HIP JOINT SPACES: Narrowing of the joint space. PUBIC SYMPHYSIS: Normal. SOFT TISSUES: Normal. IMPRESSION: No acute osseous abnormality pelvis and left hip. Moderate osteoarthritic changes. Reviewed, dictated and finalized at location A.
== END 2024-02-21 16:27 ==
PROVIDERS: PCP Family Medicine Adolescent Medicine; Visit Provider Family Medicine Adolescent Medicine
DX: M79.652 Pain in left thigh (principal); M16.12 Unilateral primary osteoarthritis, left hip
CPT/HCPCS: 73502; 73552

== ENCOUNTER 2024-04-23 10:07 | Outpatient (CLI) | payer MEDICARE, OTHER, SELFPAY ==
--- NOTE | ~2024-04-23 | MM_ITS ---
EXAMINATION: MM screening nico BI w lukasz HISTORY: Screening TECHNIQUE: Craniocaudal and mediolateral oblique 3-D tomosynthesis images were obtained and synthetic 2-D images were generated. CAD analysis was submitted and interpreted. COMPARISON: Comparison to multiple prior studies sequentially, with oldest reviewed study dated 12/2016. BREAST PARENCHYMAL COMPOSITION: Dense: The breasts are heterogeneously dense, which may obscure small masses FINDINGS: There is no evidence of suspicious mass, calcification, or architectural distortion to sugg est malignancy in either breast. There has been no suspicious interval change. IMPRESSION: 1. No mammographic evidence of malignancy. 2. Recommend routine screening mammography in one year. BI-RADS Category 1: Negative Reviewed, dictated and finalized at location B.
== END 2024-04-23 10:08 | disposition home or self-care (01) ==
LOC: MICIMG 10:10
PROVIDERS: PCP Family Medicine Adolescent Medicine; Visit Provider Obstetrics & Gynecology Gynecology
DX: Z12.31 Encounter for screening mammogram for malignant neoplasm of breast (principal)
CPT/HCPCS: 77063; 77067

== ENCOUNTER → 2024-10-22 15:10 | Outpatient (CLI) | payer MEDICARE, OTHER, SELFPAY ==
--- NOTE | ~2024-10-22 | XR_ITS ---
XR shoulder RT min 2V 10/22/2024 15:43 Indication: Right shoulder pain Procedure: 4 views right shoulder Comparison: No prior studies for comparison. 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 Osteopenia. No fracture or tra umatic malalignment. Impression: 1: Moderate polyarticular osteoarthritis. Reviewed, dictated and finalized at location A. Impression: 1: Moderate polyarticular osteoarthritis.
--- NOTE | ~2024-10-22 | XR_ITS ---
XR elbow RT 2V Ordering provider: Wendi Burris DO History: . M25.521 - Pain in right elbow . Comparison: None. FINDINGS: BONES: No definite fractures seen. JOINT SPACES: Normal. SOFT TISSUES: Unremarkable. No definite joint effusion. IMPRESSION: No definite acute osseous abnormality of the right elbow. If patient continued to have symptoms a rep eat exam in 10 days is advised. Reviewed, dictated and finalized at location A. IMPRESSION: No definite acute osseous abnormality of the right elbow. If patient continued to have symptoms a repeat exam in 10 days is advised.
--- NOTE | ~2024-10-22 | XR_ITS ---
XR wrist RT w scaphoid Ordering provider: Wendi Burris DO History: . M25.531 - Pain in right wrist . Comparison: None. FINDINGS: BONES: No acute fracture or dislocation. No definite scaphoid fracture. Osteopenia of the bones. JOINT SPACES: Normal. SOFT TISSUES: Normal. IMPRESSION: No acute osseous abnormality right wrist. Reviewed, dictated and finalized at location A.
== END ==
PROVIDERS: PCP Family Medicine; Visit Provider Family Medicine
DX: M25.531 Pain in right wrist (principal); M25.521 Pain in right elbow; M25.511 Pain in right shoulder; M19.011 Primary osteoarthritis, right shoulder
CPT/HCPCS: 73030; 73070; 73110

== ENCOUNTER → 2024-11-19 10:18 | Outpatient (CLI) | payer MEDICARE, OTHER, SELFPAY ==
--- NOTE | ~2024-11-19 | XR_ITS ---
Right wrist Technique: PA, oblique, lateral, and ulnar deviation views were obtained. Clinical History: Pain Findings: No acute fracture or dislocation is seen. Osseous alignment is anatomic. Joint spaces are p reserved. Soft tissues are unremarkable. Impression: Unremarkable right wrist radiographs. Reviewed, dictated and finalized at location . Impression: Unremarkable right wrist radiographs.
--- NOTE | ~2024-11-19 | XR_ITS ---
Right elbow Technique: AP, oblique, and lateral views were obtained. Clinical History: Pain Findings: No acute fracture or dislocation is seen. Osseous alignment is anatomic. Joint spaces are p reserved. There is no displacement of the fat pads, and soft tissues are unremarkable. Impression: Unremarkable radiographs. Reviewed, dictated and finalized at [facility]. Impression: Unremarkable radiographs.
== END ==
LOC: EXPCRAD 10:21
PROVIDERS: PCP Family Medicine; Visit Provider Family Medicine
DX: M25.521 Pain in right elbow (principal); M25.531 Pain in right wrist
CPT/HCPCS: 73080; 73110

== ENCOUNTER 2025-04-26 11:27 | Outpatient (CLI) | payer MEDICARE, OTHER, SELFPAY ==
--- NOTE | ~2025-04-26 | MM_ITS ---
EXAMINATION: MM screening nico BI w lukasz HISTORY: Screening TECHNIQUE: Craniocaudal and mediolateral oblique 3-D tomosynthesis images were obtained and synthetic 2-D images were generated. CAD analysis was submitted and interpreted. COMPARISON: 04/17/2023 BREAST PARENCHYMAL COMPOSITION: The breasts are extremely dense, which lowers the sensitivity of mammography. FINDINGS: There is no evidence of suspicious mass, calcification, or architectural distortion to suggest malignancy. There has been no suspicious interval change. IMPRESSION: 1. No mammographic evidence of malignancy. Recommend routine screening mammography in one year. BI-RADS Category 2: Benign finding(s) Reviewed, dictated and finalized at location Q. IMPRESSION: 1. No mammographic evidence of malignancy. Recommend routine screening mammogra phy in one year. BI-RADS Category 2: Benign finding(s)
== END 2025-04-26 11:28 | disposition home or self-care (01) ==
LOC: MICIMG 11:28
PROVIDERS: PCP Family Medicine Adolescent Medicine; Visit Provider Nurse Practitioner
DX: Z12.31 Encounter for screening mammogram for malignant neoplasm of breast (principal)
CPT/HCPCS: 77063; 77067